=== PATIENT | female | born 2000 | race Caucasian/White ===

== ENCOUNTER 2021-11-13 17:06 | Emergency (ER) | payer MEDICAID, SELFPAY ==
[2021-11-13 17:07] VITALS: BP 124/92; PULSE 82; RESP 14; TEMP 36.7; O2SAT 97; BMI 33.8
--- NOTE | 2021-11-13 17:26 | EDS_ITS ---
HPI History of Present Illness Chief Complaint: Abscess Informant: patient Onset/Context/Timing Onset: Days Context: Gradual Onset Current Severity: Mild Maximum Severity: Mild Narrative Narrative: -year-old female past medical history of reflux. 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 She has had a known right breast cyst in that area for the last 8 years. They were going to incise and drain at one time but she developed a strep throat infection and the surgery got put off and she never really followed up. Now she says there is a hole and is draining purulent fluid. She denies any fever or chills. Otherwise feels well. Prior similar symptoms: Yes Recent Illness/Hospitalization: No PFSH PFSH Home Medications Prilosec OTC 11/13/21 [History Last Taken Unknown] cephalexin 500 mg capsule 500 mg PO Q6 #40 caps 11/13/21 [Rx Last Taken Unknown] Allergy/AdvReac Type Severity Reaction Status Date / Time amoxicillin Allergy Rash Verified 11/13/21 17:09 Social History Smoking Status: Never smoker ROS ROS ED ROS Narrative No recent illness. Review of Systems ROS Unobtainable: Denies due to encephalopathy Constitutional Constitutional ED: Denies chills Eyes Eyes: Denies blurry vision ENT ENT ED: Denies ear pain Cardiovascular Cardiovascular: Denies chest pain Respiratory/Chest Respiratory/Chest: Denies cough Gastrointestinal Gastrointestinal: Denies abdominal pain Genitourinary Genitourinary ED: Denies dysuria Musculoskeletal Musculoskeletal: Denies arthralgias Integumentary Denies abscess Neurologic Neurologic: Denies headache(s) Psychiatric Psychiatric: Denies anxiety Endocrine Endocrinology: Denies cold intolerance Allergic/Immunologic Allergic/Immunologic ED: Denies mouth swelling EXAM Physical Exam Narrative Exam Narrative: Appearing 21-year-old no acute distress. Vital signs stable afebrile. HEENT neck, heart and lung exam are normal. Abdomen soft nontender. With a female nurse present in the room I did a breast exam her right breast anterior to the nipple there is a small wound that has cloudy discharge. Mildly tender. Fullness of the skin. Small area of cellulitis. No axillary lymphadenopathy. Other breast is unremarkable nontender. This does appear to be infected. Const Vital Signs: 11/13/21 17:07 Temperature 98.0 F Temperature Source Temporal Pulse Rate 82 Respiratory Rate 14 Blood Pressure 124/92 H Blood Pressure Mean 102 Pulse Ox 97 Oxygen Delivery Method Room Air Positive well nourished, well developed and obese; Negative for cachectic, contractures or unkempt General Appearance ED: well developed; Negative for unkempt, cachectic or contractures Nutritional Appearance: obese; Negative for cachectic HEENT Reports moist mucous membranes; Denies dry mucous membranes Negative for trauma or tenderness Mouth ED: No dry mucous membranes Mouth: No dry mucous membranes Eyes PERRL General Eye ED: Negative for pale conjunctiva or scleral icterus Neck no lymphadenopathy, supple and no JVD General: Negative for tenderness Lymph Lymphatic: Negative for other Chest Wall inspection of chest normal; Negative for palpation of chest normal Chest Narrative: Right breast abscess. Draining. Small area of cellulitis. Fullness. No a xillary lymphadenopathy. Resp normal respiratory effort and clear to auscultation bilaterally Auscultation: Negative for rales, rhonchi or wheezes Cardio regular rate, regular rhythm, S1 normal heart sound, S2 normal heart sound and no murmurs Rate: Negative for bradycardia GI normal to inspection, nondistended, normoactive bowel sounds, non-tender, non- distended and no masses; Negative for hepatosplenomegaly Inspection: Negative for abdominal distention Auscultation: normoactive bowel sounds Palpation: soft; Negative for tender or guarding Back/Spine no CVA tenderness General Back: Negative for CVA tenderness Cervical Spine: Negative for cervical spine tenderness Thoracic Spine / Upper Back: Negative for thoracic spinal tenderness Extremity normal to inspection General Extremety ED: Negative for edema or tenderness General Extremity: Negative for edema Neuro oriented x3 Sensorium / Orientation: alert; Negative for orientation impaired, lethargic or stuporous Motor Exam: strength 5/5 throughout; Negative for general weakness Psych mental status grossly normal Appearance: Negative for unkempt Attitude: No agitated Mood & Affect: Negative for depressed Skin no rashes or lesions noted and No no wounds Wounds: wounds noted MDM MDM MDM Narrative Medical decision making narrative: [id number] female with a right breast abscess that is actively draining. I discussed with her options such as incision and drainage. She would like to hold off on that at this time. She will be started on Keflex 500 4 times daily for 10 days. Follow-up with local general surgeon for further evaluation Esimil surgical resection of this area. She will be given a dose of Keflex here. Discharge Plan Triage Chief Complaint: Abscess ED Provider: Fabian Hodges Dx/Rx/DC Orders Clinical Impression: Abscess of breast, right, Cellulitis Instructions: ED Abscess Antibiotic Treatment Only Prescriptions: New cephalexin 500 mg capsule 500 mg PO Q6 Qty: 40 0RF No Action Prilosec OTC Primary Care Provider: Honey Bajwa Referrals: Honey Bajwa DO [Primary Care Provider] - Maddy Hines MD [STAFF PHYSICIAN] - As soon as possible Activity Restrictions/Additional Instructions: Motrin and Tylenol for pain. Antibiotic Keflex 4 times a day until gone. Follow-up with the local surgeon Dr. Hines for further evaluation. And possible surgical resection of the area. Disposition Disposition: Home, Self Care
[2021-11-13] MEDS: Cephalexin 250 MG Capsule 500 MG PO (17:40)
== END 2021-11-13 17:45 | disposition home or self-care (01) ==
PROVIDERS: Emergency Provider Emergency Medicine; Visit Provider Emergency Medicine
DX: N61.1 Abscess of the breast and nipple (principal); E66.9 Obesity, unspecified; Z68.33 Body mass index [BMI] 33.0-33.9, adult; K21.9 Gastro-esophageal reflux disease without esophagitis
CPT/HCPCS: 99282